=== PATIENT | female | born 1960 | race African-American/Black ===

== ENCOUNTER 2022-12-28 11:56 | Outpatient (CLI) | payer MEDICARE, MEDICAID, SELFPAY | END 2022-12-28 11:57 | disposition home or self-care (01) | LOC: AMB 01-16 12:01 | PROVIDERS: Visit Provider Internal Medicine | DX: R53.1 Weakness (principal); R42 Dizziness and giddiness; I95.9 Hypotension, unspecified | CPT/HCPCS: A0425; A0429 ==

== ENCOUNTER 2023-09-17 13:33 | Outpatient (CLI) | payer MEDICARE, SELFPAY | END 2023-09-17 13:34 | disposition home or self-care (01) | LOC: AMB 10-01 00:30 | PROVIDERS: Visit Provider Emergency Medicine | DX: I46.9 Cardiac arrest, cause unspecified (principal) | CPT/HCPCS: A0425; A0433 ==

== ENCOUNTER 2023-12-14 14:35 | Outpatient (CLI) | payer MEDICARE, SELFPAY | END 2023-12-14 14:36 | disposition home or self-care (01) | LOC: AMB 12-23 17:44 | PROVIDERS: Visit Provider Emergency Medicine Emergency Medical Services | DX: R55 Syncope and collapse (principal) | CPT/HCPCS: A0425; A0427 ==